=== PATIENT | female | born 1980 | race Caucasian/White ===

== ENCOUNTER 2020-01-24 17:14 | Emergency (ER) | payer OTHER ==
[~2020-01-24] VITALS: Ht 175.3 cm; Wt 111.1 kg
[2020-01-24] MEDS ORDERED: KEFLEX500 M1 PO (19:00)
[2020-01-24] MEDS ORDERED: NORCO 5-325 TA1 EAC2 PO (19:00)
[2020-01-24 19:26] VITALS: BP 140/80
== END 2020-01-24 19:26 | disposition home or self-care (01) ==
LOC: M.ERS 17:14
DX: S86.911A Strain of unspecified muscle(s) and tendon(s) at lower leg level, right leg, initial encounter (principal); S81.011A Laceration without foreign body, right knee, initial encounter; M25.572 Pain in left ankle and joints of left foot; Z90.711 Acquired absence of uterus with remaining cervical stump; Z90.49 Acquired absence of other specified parts of digestive tract; Z91.040 Latex allergy status; W01.0XXA Fall on same level from slipping, tripping and stumbling without subsequent striking against object, initial encounter; Y93.89 Activity, other specified; Y92.89 Other specified places as the place of occurrence of the external cause; Y99.8 Other external cause status